=== PATIENT | male | born 1990 | race Caucasian/White ===

== ENCOUNTER 2020-07-21 09:57 | Emergency (ER) | payer OTHER ==
[~2020-07-21] VITALS: Ht 185.4 cm; Wt 104.0 kg
[2020-07-21 10:08] VITALS: BP 128/90
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
== END 2020-07-21 11:08 | disposition home or self-care (01) ==
LOC: ER 09:57
DX: M54.5 Low back pain (principal); M62.830 Muscle spasm of back; V98.8XXA Other specified transport accidents, initial encounter; Y93.I9 Activity, other involving external motion; Y92.488 Other paved roadways as the place of occurrence of the external cause; Y99.8 Other external cause status
CPT/HCPCS: 72100; 99283